=== PATIENT | male | born 1965 | race Caucasian/White ===

== ENCOUNTER 2023-01-12 19:39 | Emergency (ER) | payer OTHER ==
[2023-01-12] MEDS ORDERED: Diphtheria,Pertussis(Acell),Tetanus Vaccine 0.5 ML Syringe IM ONE (20:22)
[2023-01-12] MEDS ORDERED: Lidocaine 1% 10 ML MDV INJECT STA (20:22)
[2023-01-12] MEDS ORDERED: Bacitracin Oint 1 GM U/D Packet TOP ONE (20:24)
== END 2023-01-12 22:13 | disposition home or self-care (01) ==
LOC: JP.ED 19:39
DX: S01.312A Laceration without foreign body of left ear, initial encounter (principal); Z23 Encounter for immunization; W22.8XXA Striking against or struck by other objects, initial encounter
CPT/HCPCS: 12013; 90471; 90715; 99282-25